=== PATIENT | female | born 1955 | race African-American/Black ===

== ENCOUNTER 2016-06-24 09:15 | Emergency (ER) | payer SELFPAY ==
[~2016-06-24] VITALS: Ht 165.1 cm; Wt 90.0 kg
[2016-06-24] MEDS ORDERED: HYDROCODONE/ACETAMINOPHEN 5/325MG TABLET PO ONE ×2 (10:00→12:00)
[2016-06-24] MEDS ORDERED: KETOROLAC 60MG/2ML VIAL IM ONE (10:00)
[2016-06-24 12:40] VITALS: BP 120/87
== END 2016-06-24 13:21 | disposition home or self-care (01) ==
LOC: ER 10:12
DX: S80.02XA Contusion of left knee, initial encounter (principal); M19.90 Unspecified osteoarthritis, unspecified site; I10 Essential (primary) hypertension; W01.0XXA Fall on same level from slipping, tripping and stumbling without subsequent striking against object, initial encounter; Y93.89 Activity, other specified; Y92.018 Other place in single-family (private) house as the place of occurrence of the external cause
CPT/HCPCS: 73562; 96372; 99284; J1885; L1830